=== PATIENT | female | born 1970 | race Caucasian/White ===

== ENCOUNTER 2020-07-25 10:22 | Emergency (ER) | payer SELFPAY ==
--- NOTE | 2020-07-25 12:00 | CT ---
EXAM: CT Thoracic Spine WO Con PROVIDED CLINICAL HISTORY: Back pain after falling. Injury to thoracic spine. COMPARISON: None FINDINGS: Multiple wedge-shaped compression fractures are seen involving the lower thoracic spine involving the T6, T7, T8, T10, and T11 vertebral bodies. Greatest degree of loss of height is seen involving the T6 and T8 vertebral bodies with approximately 50% loss of height involving the T8 vertebral body and approximately 40% loss of height involving the T6 vertebral body. No subluxation is seen involving the thoracic spine. Degenerative changes are seen in the lower cervical spine. No significant intradural or extradural defect is seen involving the thoracic spine. No high-grade ce ntral canal or neural foraminal narrowing is seen involving the thoracic spine. Paravertebral soft tissues are slightly prominent adjacent to the compression fractures of the thorac ic vertebral bodies which is nonspecific but could be related to changes secondary to the fractures. Small hiatal hernia is present. Limited visualized medial aspects of the lung zones are clear. IMPRESSION: Indeterminate age compression fractures involving multiple lower thoracic vertebral bodies including the T6, T7, T8, T10, and T11 vertebral bodies. Greatest degrees of loss of height are seen involving the T6 and T8 vertebral bodies.
== END 2020-07-25 14:20 | disposition home or self-care (01) ==
LOC: ERS 10:22
DX: S22.050A Wedge compression fracture of T5-T6 vertebra, initial encounter for closed fracture (principal); S22.060A Wedge compression fracture of T7-T8 vertebra, initial encounter for closed fracture; S22.070A Wedge compression fracture of T9-T10 vertebra, initial encounter for closed fracture; S22.080A Wedge compression fracture of T11-T12 vertebra, initial encounter for closed fracture; M79.7 Fibromyalgia; M19.90 Unspecified osteoarthritis, unspecified site; I48.91 Unspecified atrial fibrillation; I10 Essential (primary) hypertension; K21.9 Gastro-esophageal reflux disease without esophagitis; Z79.899 Other long term (current) drug therapy; W01.10XA Fall on same level from slipping, tripping and stumbling with subsequent striking against unspecified object, initial encounter
CPT/HCPCS: 72128

== ENCOUNTER 2020-08-17 11:19 | Outpatient (CLI) | payer OTHER, SELFPAY ==
--- NOTE | 2020-08-17 11:44 | RAD ---
Exam: 3 views thoracic spine HISTORY: Follow-up thoracic spine fracture COMPARISON: None Correlation: Thoracic spine CT 07/25/2020 FINDINGS: AP, swimmer's and lateral view of the thoracic spine redemonstrate 12 thoracic type vertebr a. There is stable loss of vertebral body height at T6, T7, T8, T10 and T11. There is no radiographic evidence of significant change in vertebral body height. IMPRESSION: Stable multilevel thoracic spine compression fractures.
== END 2020-08-17 11:20 | disposition home or self-care (01) ==
LOC: TBSIIMAG 11:19
PROVIDERS: ATTEND Physician Assistant
DX: S22.000D Wedge compression fracture of unspecified thoracic vertebra, subsequent encounter for fracture with routine healing (principal)
CPT/HCPCS: 72070

== ENCOUNTER 2020-10-17 10:26 | Outpatient (CLI) | payer OTHER | END 2020-10-17 10:27 | disposition home or self-care (01) | LOC: BICRAD 10:26 | PROVIDERS: ATTEND Physician Assistant | DX: S22.009A Unspecified fracture of unspecified thoracic vertebra, initial encounter for closed fracture (principal) | CPT/HCPCS: 72072 ==

== ENCOUNTER 2024-09-03 19:03 | Emergency (ER) | payer SELFPAY | END 2024-09-03 21:03 | disposition home or self-care (01) | LOC: ERS 19:03 | DX: J10.1 Influenza due to other identified influenza virus with other respiratory manifestations (principal); I48.91 Unspecified atrial fibrillation; I10 Essential (primary) hypertension | CPT/HCPCS: 71045; 87428 ==